=== PATIENT | male | born 1985 | race Hispanic/Latino ===

== ENCOUNTER 2022-08-05 06:41 | Day surgery (SDC) | payer OTHER ==
[2022-07-31 12:38] LABS: BASOPHILS % (AUTO) 0.4 % (0.0-5.0); EOSINOPHILS % (AUTO) 3.7 % (0.0-8.0); LYMPHOCYTES % (AUTO) 30.1 % (21.0-51.0); MEAN CORPUSCULAR HEMOGLOBIN 29.8 pg (27.0-33.0); MEAN CORPUSCULAR HGB CONC 33.3 g/dL (32.0-36.0); MEAN CORPUSCULAR VOLUME 89.4 fL (79-99); MONOCYTES % (AUTO) 8.5 % (3.0-13.0); NEUTROPHILS % (AUTO) 57.1 % (40.0-77.0); PLATELET COUNT (AUTO) 337 K/uL (130-400); RED CELL DISTRIBUTION WIDTH 12.3 % (11.0-15.5); WHITE BLOOD COUNT (AUTO) 8.4 K/uL (4.8-10.8)
[2022-07-31 12:43] VITALS: BP 115/75
[2022-08-05] VITALS (20 sets, daily range): BP systolic 102–129; BP diastolic 70–89
[~2022-08-05] VITALS: Ht 160 cm; Wt 62.9 kg
[2022-08-05] MEDS ORDERED: 0.9%NACL 1000ML 1,000 ML IV ONE (06:48)
[2022-08-05] MEDS ORDERED: CEFAZOLIN SODIUM 2 GM VIAL ONE (06:48)
[2022-08-05] MEDS ORDERED: BUPIVACAINE/PF 0.25% 30ML VIAL IJ ONE ×2 (07:22→07:29)
[2022-08-05] MEDS ORDERED: LIDOCAINE 1%-EPI 1:100,000 20 ML VIAL IJ ONE ×2 (07:22→07:28)
[2022-08-05] MEDS ORDERED: HYDROMORPHONE 1 MG INJ ONE (07:25)
[2022-08-05] MEDS ORDERED: FAMOTIDINE 20MG VIAL IV ONE (07:26)
[2022-08-05] MEDS ORDERED: PROPOFOL 10 MG/ML 20ML VIAL IV ONE (07:28)
[2022-08-05] MEDS ORDERED: FENTANYL CITRATE PF 50 MCG/1 ML 2ML VIAL ONE ×2 (07:28→09:42)
[2022-08-05] MEDS ORDERED: LIDOCAINE PF 100MG/5ML (2%) SYRINGE 5ML ONE (07:28)
[2022-08-05] MEDS ORDERED: MIDAZOLAM HCL 1 MG/ML 2ML VIAL ONE (07:29)
[2022-08-05] MEDS ORDERED: GLYCOPYRROLATE 1 MG/5 ML SYRINGE ONE (07:29)
[2022-08-05] MEDS ORDERED: ROCURONIUM 10MG/1ML SYR 10 MG/ML ML ONE (07:29)
[2022-08-05] MEDS ORDERED: ONDANSETRON 4MG INJ ONE ×2 (08:08→10:21)
[2022-08-05] MEDS ORDERED: NEOSTIGMINE 5MG/5ML SYR IV ONE (09:08)
[2022-08-05] MEDS ORDERED: MEPERIDINE-PF 25 MG/ML SYG ONE (09:17)
[2022-08-05] MEDS ORDERED: IBUPROFEN 800 MG TAB ONE (10:38)
== END 2022-08-05 11:40 | disposition home or self-care (01) ==
LOC: DAH 06:41
PROVIDERS: ATTEND Surgery
DX: K40.20 Bilateral inguinal hernia, without obstruction or gangrene, not specified as recurrent (principal); Z20.822 Contact with and (suspected) exposure to COVID-19; F41.9 Anxiety disorder, unspecified; F32.A Depression, unspecified; Z79.899 Other long term (current) drug therapy; Z98.890 Other specified postprocedural states
CPT/HCPCS: 85025; 87426; 36415; 49650; A6260; A4663; J7030 ×2; A4344; A4215 ×2; J3490 ×6; J3010 ×2; J1170; J2710; J2001; J2250; J2704; J2405 ×2; J2175; J0690; C1781 ×2; A4930; A4223; A4222; A4221; S2900